=== PATIENT | male | born 1990 | race Caucasian/White ===

== ENCOUNTER 2018-05-29 19:19 | Emergency (ER) | payer MEDICAID ==
--- NOTE | 2018-05-29 19:22 | EDPHY ---
H & P Time Seen by Provider: 05/29/18 19:21 Constitutional: Initial Vital Signs Temperature (C) 37.1 C 05/29/18 19:28 Heart Rate 73 05/29/18 19:28 Respiratory Rate 16 05/29/18 19:28 Blood Pressure 121/50 H 05/29/18 19:28 O2 Sat (%) 96 05/29/18 19:28 O2 Delivery Mode Room Air Allergies/Adverse Reactions: No Known Allergies Allergy (Unverified 05/29/18 19:27) Home Medications: Medication Instructions Recorded Unobtainable 05/29/18 Medical Decision Making ED Course/Re-evaluation: CHIEF COMPLAINT: Somnolent secondary to Suboxone injection HISTORY OF PRESENT ILLNESS: The patient is a 28 y/o male with a history of heroin abuse arriving via EMS after becoming somnolent. Per EMS, the patient was lying in a shower for 2 hours and intermittently sleeping while in the shower. The patient told EMS that he injected Suboxone after grinding it up earlier today. The patient injected this as he ran out of Heroin today, which he last used this morning. Since the patient was still somnolent after 2 hours in the shower, EMS was called and the patient was brought to this emergency department. No fever, headaches, chest pain, shortness of breath, abdominal pain, urinary or bowel complaints, numbness or paresthesias. REVIEW OF SYSTEMS: A comprehensive 10 system review of systems is otherwise negative aside from elements mentioned in the history of present illness and medical decision making. PHYSICAL EXAM: HR, BP, O2 Sat, RR. Temp noted General Appearance: Shivering, naked, has goose bumps, lying in a position. Well hydrated, appears to be withdrawing. Head: Atraumatic without scalp tenderness or obvious injury Eyes: Pupils equal, round, reactive to light and accommodation, EOMI, no trauma , no injection. Ears: Clear bilaterally, no perforation, normal landmarks Nose: Atraumatic, no rhinorrhea, clear. Throat: There is no erythema or exudates, no lesions, normal tonsils, mucus membranes moist. Neck: Supple, 2+ carotid upstroke, nontender, no lymphadenopathy. Respiratory: No retractions, no distress, no wheezes, and no accessory muscle use. Lungs are clear to auscultation bilaterally. Cardiovascular: Regular rate and rhythm, no murmurs, rubs, or gallops. Bilateral carotid, radial, dorsalis pedis, and posterior tibial pulses intact. Good capillary refill all extremities. Gastrointestinal: Abdomen is soft, nontender, non-distended, no masses, no rebound, no guarding, no peritoneal signs. Musculoskeletal: Normal active ROM of all extremities, atraumatic. Neurological: Alert, appropriate, and interactive. The patient has normal DTRs and non-focal cranial nerves, motor, sensory, and cerebellar exam. Skin: No rashes, good turgor, no nodules on palpation. Past medical history: Heroin abuse Past surgical history: Denies Family history: Denies Social history: Originally from [place], has a girlfriend, employed DIAGNOSTICS/PROCEDURES/CRITICAL CARE TIME: Not indicated. DIFFERENTIAL DIAGNOSIS: The differential diagnosis for the patient's altered mental status included but was not limited to hypoglycemia, infectious process, electrolyte abnormality, head injury, neurologic process, anemia, cardiac process, and intoxicants. MEDICAL DECISION MAKING: The patient is a 28 y/o male with a history of heroin abuse arriving via EMS after becoming somnolent after injecting Suboxone today as he ran out of heroin. The patient is shivering, naked, lying in a position and clearly withdrawing from opiates. 2mg PO Ativan and 0.1mg PO Clonidine administered. 2030: Reassessed patient and discussed plan for discharge with his girlfriend. Return precautions provided; patient is comfortable with this plan. - Data Points Medications Given: Discontinued Medications Chlordiazepoxide (Librium 25 Mg Prepack#6) 1 btl TAKEHOME EDNOW ONE Stop: 05/29/18 19:30 Last Admin: 05/29/18 19:41 Dose: 1 btl Clonidine (Catapres) 0.1 mg PO EDNOW ONE Stop: 05/29/18 19:29 Last Admin: 05/29/18 19:41 Dose: 0.1 mg Lorazepam (Ativan) 2 mg PO EDNOW ONE Stop: 05/29/18 19:29 Last Admin: 05/29/18 19:40 Dose: 2 mg Departure - Departure Disposition: Home, Routine, Self-Care Clinical Impression: Opiate withdrawal Condition: Good Instructions: Opioid Withdrawal (ED) Additional Instructions: 1. Please refrain from abusing heroin. 2. Return to the emergency department immediately for fever, vomiting, confusion , headache, abdominal pain or other worsening of condition. 3. Followup with your primary care physician within 72 hours for reevaluation. Referrals: [facility] [Outside] - As per Instructions Report Scribed for: Jordon Lange Report Scribed by: Yolanda Maynard Date of Report: 05/29/18 Time of Report: 19:22
[2018-05-29] MEDS ORDERED: LORazepam 1 MG TAB PO ONE (19:28)
[2018-05-29] MEDS ORDERED: CHLORDIAZEPOXIDE 25MG PREPK#6 BTL TAKEHOME ONE (19:29)
[2018-05-29 20:34] VITALS: BP 120/77
== END 2018-05-29 21:20 | disposition home or self-care (01) ==
DX: F11.23 Opioid dependence with withdrawal (principal)